=== PATIENT | male | born 1940 | race Caucasian/White ===

== ENCOUNTER 2016-11-13 09:15 | Outpatient (CLI) | payer MEDICARE, OTHER ==
--- NOTE | 2016-11-13 12:12 | RAD ---
TWO VIEWS CHEST: 11/13/2016 HISTORY: Dyspnea. COMPARISON: 09/22/2016 FINDINGS: Two views of the chest demonstrate a dual-lead intracardiac pacing device. The lungs are well aerat ed. No evidence of active intrathoracic disease is seen. No evidence of effusions, pneumonia, or p neumothorax is seen. IMPRESSION: Unremarkable two views chest. POS: [facility]
== END 2016-11-13 09:16 | disposition home or self-care (01) ==
LOC: RAD 09:15
PROVIDERS: ATTEND Internal Medicine Critical Care Medicine
DX: R06.00 Dyspnea, unspecified (principal)
CPT/HCPCS: 71020

== ENCOUNTER 2017-12-02 09:54 | Outpatient (CLI) | payer MEDICARE, OTHER ==
--- NOTE | 2017-12-02 12:28 | RAD ---
FRONTAL AND LATERAL IMAGING CHEST: Date: 12/02/17 COMPARISON: 11/13/16. HISTORY: Dyspnea. FINDINGS: Stable dual lead transvenous pacing device. No pneumothorax, pleural fluid, focal consolidation, or a lveolar edema. There is increased linear interstitial density and pulmonary hyperinflation suggesting COPD, stable. No acute findings are noted. IMPRESSION: Stable 2 view examination of the chest as described above. POS: [facility]
== END 2017-12-02 09:55 | disposition home or self-care (01) ==
LOC: RAD 09:54
PROVIDERS: ATTEND Internal Medicine Critical Care Medicine
DX: R06.00 Dyspnea, unspecified (principal); R91.8 Other nonspecific abnormal finding of lung field
CPT/HCPCS: 71046

== ENCOUNTER 2019-02-13 11:58 | Outpatient (CLI) | payer MEDICARE, OTHER ==
--- NOTE | 2019-02-13 13:25 | RAD ---
PA AND LATERAL CHEST: Date: 02/13/2019 HISTORY: Dyspnea. COMPARISON: 12/02/17 study. FINDINGS: Heart size within normal limits. Pacemaker present. Chronic lung changes are seen without focal infil trates. IMPRESSION: Chronic lung change. POS: [facility]
== END 2019-02-13 11:59 | disposition home or self-care (01) ==
LOC: RAD 11:58
PROVIDERS: ATTEND Internal Medicine Critical Care Medicine
DX: R06.00 Dyspnea, unspecified (principal)
CPT/HCPCS: 71046

== ENCOUNTER 2019-03-10 10:16 | Day surgery (SDC) | payer MEDICARE, OTHER ==
[2019-03-09 12:20] VITALS: BMI 35.6
[2019-03-10 12:46] LABS: #Eosinphils 0.1 thou/uL (0.0-0.7); #Lymphocytes 2.3 thou/uL (1.20-3.40); #Monocytes 0.6 thou/uL (0.11-0.59); #Neutrophils 3.1 thou/uL (1.40-6.50); %Basophils 0.8 % (0.0-1.0); %Eosinophils 1.9 % (0.0-10.0); %Lymphocytes 37.6 % (21.0-51.0); %Monocytes 9.5 % (0.0-10.0); %Neutrophils 50.3 % (42.0-75.0); Hemoglobin 13.6 g/dL (14.0-18.0); Mean Corpuscular HGB CONC 32.5 g/dL (32.0-36.0); Mean Corpuscular Hemoglobin 31.1 pg (27.0-31.0); Mean Corpuscular Volume 95.6 fL (78.0-98.0); Mean Platelet Volume 9.6 fL (7.4-10.4); Platelet Count 136 thou/uL (130-400); RBC Distribution Width 12.8 % (11.5-14.5); Red Blood Cell (RBC) Count 4.38 mill/uL (4.70-6.10); White Blood Cell (WBC) Count 6.2 thou/uL (4.8-10.8)
[2019-03-10] MEDS ORDERED: Levofloxacin 500 mg/D5W 100 ml Premix Bag ONE (12:58)
[2019-03-10] MEDS ORDERED: Clindamycin/D5W 900 mg/50 ml Premix Bag ONE (12:58)
[2019-03-10 13:00] LABS: Anion Gap 11 mmol/L (10-20); BUN (Urea Nitrogen) 32 mg/dL (8.4-25.7); Calc. Creatinine Clearance 59 mL/min (70-130); Calcium 8.9 mg/dL (7.8-10.44); Carbon Dioxide 23 mmol/L (23-31); Chloride 110 mmol/L (98-107); Estimated GFR-MDRD 40; Glucose 104 mg/dL (83-110); Potassium 4.4 mmol/L (3.5-5.1); Sodium 140 mmol/L (136-145)
[2019-03-10] MEDS ORDERED: Midazolam HCl 2 mg/2 ml Vial ONE (13:00)
[2019-03-10] MEDS ORDERED: Fentanyl 100 MCG/2 ML VIAL ONE (13:00)
--- NOTE | 2019-03-10 14:25 | RAD ---
Portable frontal chest radiograph: 03/10/2019 COMPARISON: 02/13/2019 HISTORY: Evaluate chest following pacemaker placement FINDINGS: Dual lead transvenous pacing device present, inserted via a left subclavian approach. No pn eumothorax, pleural fluid, focal consolidation, or alveolar edema. Pacing leads overlie the region of the right atrium and the right ventricle. IMPRESSION: Dual lead transvenous pacing device with no pneumothorax noted.
[2019-03-10] MEDS ORDERED: Acetaminophen 325 MG TAB ONE (16:01)
--- NOTE | 2019-03-10 20:28 | DIS ---
DATE OF ADMISSION: 03/10/2019 DATE OF DISCHARGE: 03/10/2019 He was seen in an outpatient facility to undergo an atrial lead revision. He had been found to have high atrial impedance on the atrial lead when his last pacemaker evaluated the pacemaker function, otherwise it was normal. The ventricular lead also was normal and overall function was normal in the pacemaker device. He was advised to undergo atrial lead revision. He was taken to the lab today, where he underwent the procedure without difficulties or complications. His other diagnoses include COPD, history of benign prostatic hypertrophy, mild coronary artery disease, hypercholesterolemia, and pacemaker insertion in the past about four years ago. DISCHARGE DIAGNOSES: Chronic obstructive pulmonary disease, history of benign prostatic hypertrophy, mild coronary artery disease, hypercholesterolemia, and pacemaker insertion in the past about four years ago. Procedures in the hospital include atrial lead extraction and then new atrial lead placement. DISCHARGE MEDICATIONS: Include: 1. 10 mg as directed once a day. 2. Flomax 0.4 mg two tablets half an hour following the same meal each day. 3. Multivitamins once a day. 4. Escitalopram 20 mg once a day. 5. Melatonin 10 mg as directed. 6. Tricor half a tablet once a day. 7. Aspirin 81 mg a day. 8. Atorvastatin 40 mg a day. 9. Toprol-XL 25 mg once a day. He will follow up with me in the next 7 to 10 days in the office for wound check. He will continue his routine follow up with the primary care physician. HOSPITAL COURSE: The patient was admitted. The patient was seen in the outpatient facility and underwent atrial lead extraction and new lead was implanted without complications or difficulties. The same ventricular lead was used, as well as the same pacemaker. There were no complications or difficulties encountered during the procedure. He tolerated the procedure well and I will see him back in the next 7 to 10 days. Job ID: [id number]
--- NOTE | 2019-03-13 00:14 | EKG ---
Test Reason : PREOP Blood Pressure : / mmHG Vent. Rate : 098 BPM Atrial Rate : 060 BPM P-R Int : 000 ms QRS Dur : 086 ms QT Int : 208 ms P-R-T Axes : 000 074 248 degrees QTc Int : 265 ms Electronic ventricular pacemaker No previous ECGs available Confirmed by Kevin TORO ([id number]) on 03/13/2019 12:14:31 AM Referred By: CORTEZ Confirmed By:Kevin TORO
--- NOTE | 2019-03-13 00:19 | EKG ---
Test Reason : POST LEAD REVISION Blood Pressure : / mmHG Vent. Rate : 060 BPM Atrial Rate : 060 BPM P-R Int : 000 ms QRS Dur : 098 ms QT Int : 404 ms P-R-T Axes : 000 064 -35 degrees QTc Int : 404 ms Electronic atrial pacemaker Low voltage QRS Cannot rule out Anterior infarct , age undetermined T wave abnormality, consider inferior ischemia Abnormal ECG No previous ECGs available Confirmed by Kevin TORO ([id number]) on 03/13/2019 12:19:17 AM Referred By: CORTEZ Confirmed By:Kevin TORO
== END 2019-03-10 16:20 | disposition home or self-care (01) ==
LOC: CCL 10:16
PROVIDERS: ATTEND Internal Medicine Cardiovascular Disease
PROC: 02H63JZ Insertion of Pacemaker Lead into Right Atrium, Percutaneous Approach (ICD-10-PCS; principal; 2019-03-10)
PROC: 02PA3MZ Removal of Cardiac Lead from Heart, Percutaneous Approach (ICD-10-PCS; 2019-03-10)
DX: T82.897A Other specified complication of cardiac prosthetic devices, implants and grafts, initial encounter (principal); K21.9 Gastro-esophageal reflux disease without esophagitis; N40.0 Benign prostatic hyperplasia without lower urinary tract symptoms; G47.30 Sleep apnea, unspecified; F41.9 Anxiety disorder, unspecified; J44.9 Chronic obstructive pulmonary disease, unspecified; I25.10 Atherosclerotic heart disease of native coronary artery without angina pectoris; E78.00 Pure hypercholesterolemia, unspecified; E78.2 Mixed hyperlipidemia; J45.30 Mild persistent asthma, uncomplicated; Z79.82 Long term (current) use of aspirin; Z79.899 Other long term (current) drug therapy; Z88.0 Allergy status to penicillin; Z88.2 Allergy status to sulfonamides; Z88.1 Allergy status to other antibiotic agents; Z88.5 Allergy status to narcotic agent; Z99.89 Dependence on other enabling machines and devices
CPT/HCPCS: 33216; 33234; 36005; 71045; 75820; 80048; 85025; 93005; 93010; 99152; C1898; J1956; J2250; J3010; J3370; J3490

== ENCOUNTER 2019-03-12 12:02 | Emergency (ER) | payer MEDICARE, OTHER ==
[2019-03-12 12:30] LABS: #Eosinphils 0.1 thou/uL (0.0-0.7); #Lymphocytes 1.7 thou/uL (1.20-3.40); #Monocytes 0.5 thou/uL (0.11-0.59); #Neutrophils 4.7 thou/uL (1.40-6.50); %Basophils 0.4 % (0.0-1.0); %Eosinophils 1.8 % (0.0-10.0); %Lymphocytes 24.1 % (21.0-51.0); %Monocytes 7.3 % (0.0-10.0); %Neutrophils 66.4 % (42.0-75.0); Hemoglobin 14.1 g/dL (14.0-18.0); Mean Corpuscular HGB CONC 33.1 g/dL (32.0-36.0); Mean Corpuscular Hemoglobin 31.1 pg (27.0-31.0); Mean Corpuscular Volume 94.1 fL (78.0-98.0); Mean Platelet Volume 9.3 fL (7.4-10.4); Platelet Count 135 thou/uL (130-400); RBC Distribution Width 12.6 % (11.5-14.5); Red Blood Cell (RBC) Count 4.53 mill/uL (4.70-6.10); White Blood Cell (WBC) Count 7.1 thou/uL (4.8-10.8)
--- NOTE | 2019-03-12 12:52 | RAD ---
EXAM: Chest one view: HISTORY: Status post pacemaker wire changed, chest pain COMPARISON: 03/10/2019 FINDINGS: Left transvenous pacemaker. No pneumothorax or other acute process. Heart size: Within normal limits. Lungs: Clear of acute process. No evidence for confluent pneumonia, pleural effusion, acute edema, or pneumothorax, or other signifi cant acute process. IMPRESSION: No significant acute intrathoracic disease.
[2019-03-12 12:53] LABS: ALT (SGPT) 19 U/L (8-55); AST (SGOT) 20 U/L (5-34); Alkaline Phosphatase 53 U/L (40-110); Anion Gap 12 mmol/L (10-20); BUN (Urea Nitrogen) 29 mg/dL (8.4-25.7); Bilirubin, Total 0.5 mg/dL (0.2-1.2); Calc. Creatinine Clearance 0 mL/min (70-130); Carbon Dioxide 23 mmol/L (23-31); Chloride 107 mmol/L (98-107); Estimated GFR-MDRD 42; Globulin 2.7 g/dL (2.4-3.5); Glucose 106 mg/dL (83-110); Potassium 4.4 mmol/L (3.5-5.1); Protein, Total 6.7 g/dL (5.8-8.1); Sodium 138 mmol/L (136-145)
--- NOTE | 2019-03-12 15:05 | CT ---
Exam: Chest CT scan with IV contrast: HISTORY: Chest pain FINDINGS: Left transvenous pacemaker with pacemaker wires extending into the right atrial appendage as well as the apex of the right ventricle. Small amount of pericardial fluid or pericardial thickening. 3 vessel coronary artery calcific disease. 0.4 cm diameter circumscribed subpleural nodule in the right upper lobe adjacent to the major fissure. Minimal linear scattered parenchymal changes primarily in the subpleural region having more the appearance of chronic change. Small calcified granuloma and minimal associated linear parenchymal changes in the left lower lobe again having more the appearance of chronic change. No pleural effusion. In the abdomen there are few scattered calcificati ons within the pancreas evidence for chronic pancreatitis. No evidence for abnormal chest wall abnormality particularly in the visualized region around the pacemaker. IMPRESSION: Left transvenous pacemaker in place. 0.4 cm diameter right upper lobe subpleural pulmonary nodule. Consider follow-up chest CT scan in one year for further assessment. Small amount of pericardial thickening or pericardial fluid. Linear parenchymal changes bilaterally, primarily subpleural, have a more chronic appearance. No evid ence for other significant acute process.
[2019-03-12] MEDS ORDERED: Iopamidol-370 76% 500 ML 1 ML ONE (15:18)
== END 2019-03-12 15:56 | disposition home or self-care (01) ==
LOC: ERS 12:02
DX: R07.81 Pleurodynia (principal); E78.5 Hyperlipidemia, unspecified; G47.30 Sleep apnea, unspecified; Z87.891 Personal history of nicotine dependence; Z79.82 Long term (current) use of aspirin; Z79.899 Other long term (current) drug therapy
CPT/HCPCS: 71045; 71260; 80053; 82550; 83690; 84484; 85025; 93005; 94760; Q9967

== ENCOUNTER 2021-01-07 10:46 | Outpatient (CLI) | payer MEDICARE, OTHER | END 2021-01-07 10:47 | disposition home or self-care (01) | LOC: RAD 10:46 | PROVIDERS: ATTEND Internal Medicine Critical Care Medicine | DX: R06.00 Dyspnea, unspecified (principal) | CPT/HCPCS: 71046 ==

== ENCOUNTER 2021-01-15 08:38 | Outpatient (CLI) | payer MEDICARE, OTHER | END 2021-01-15 08:39 | disposition home or self-care (01) | LOC: RAD 08:38 | PROVIDERS: ATTEND Internal Medicine Critical Care Medicine | DX: R06.09 Other forms of dyspnea (principal) | CPT/HCPCS: 71046 ==

== ENCOUNTER 2022-06-24 14:39 | Outpatient (CLI) | payer MEDICARE, OTHER | END 2022-06-24 14:40 | disposition home or self-care (01) | LOC: RAD 14:39 | PROVIDERS: ATTEND Internal Medicine Critical Care Medicine | DX: R06.00 Dyspnea, unspecified (principal) | CPT/HCPCS: 71046 ==

== ENCOUNTER 2022-12-22 09:14 | Outpatient (CLI) | payer MEDICARE, OTHER | END 2022-12-22 09:15 | disposition home or self-care (01) | LOC: RAD 09:14 | PROVIDERS: ATTEND Internal Medicine Critical Care Medicine | DX: R06.00 Dyspnea, unspecified (principal) | CPT/HCPCS: 71046 ==